=== PATIENT | female | born 1935 | race Caucasian/White ===

== ENCOUNTER 2024-07-17 02:59 | Inpatient (IN) ==
[2024-07-17] MEDS ORDERED: Midazolam 5 mg/5 ml VIAL 1 mg/ml 5 ml VIAL (5 mg) ONE (03:20)
[2024-07-17] MEDS ORDERED: fentaNYL 100 mcg/2 ml 50 MCG/ML VIAL ONE (03:20)
[2024-07-17] MEDS ORDERED: Heparin 1,000 UNIT/ML 10 ml (10,000 UNITS) CATHLAB/DIALYSIS ONE (03:20)
[2024-07-17] MEDS ORDERED: VERAPAMIL 2.5 MG/ML 2 ML VIAL ** 5 mg/2 ml ONE (03:21)
[2024-07-17] MEDS ORDERED: Lidocaine 1% MPF 5 ML VIAL ONE ×2 (03:21)
[2024-07-17] MEDS ORDERED: Heparin 2 UNITS/ML IVPREMIX 2,000 UNIT/1,000 ML BAG IV ONE ×2 (03:21→17:41)
[2024-07-17] MEDS ORDERED: nitroGLYCERIN DRIP 25,000 MCG/250 ML BTL ONE (03:21)
[2024-07-17 03:26] LABS: ABS Lymphocytes 1.2 10^3/uL (1.0-4.8); ABS Monocytes 1.3 10^3/uL (0.0-0.9); ABS Neutrophils 17.7 10^3/uL (1.5-7.6); ABS Nucleated RBC 0.08 10^3/ul; Lymphocyte % 5.9 %; Mean Corpuscular Hgb Conc 32.6 g/dL (31-36); Mean Corpuscular Volume 91.9 fL (80-97); Mean Platelet Volume 7.7 fL (7.5-11.2); Nucleated Red Blood Cells % 0.4 %/100WBC (0.0-0.8); Platelet Count 288 10^3/uL (150-450); Red Blood Count 4.68 10^6/uL (3.63-4.92); Red Cell Distribution Width 14.8 % (12-17); White Blood Count 20.2 10^3/uL (3.8-11.8)
[2024-07-17] MEDS: Heparin - STEMI 5,000 UNITS/ML 1 ml VIAL IV ONE (03:27)
[2024-07-17] MEDS ORDERED: Iohexol 350 (CONTRAST) 100 ML PAK IV ONE ×3 (03:29→04:35)
[2024-07-17] MEDS: Furosemide 40 mg/4 ml IV VIAL IV SLOW PU ONE (03:30)
[2024-07-17 03:34] LABS: Activated Partial Thrombo Time 27.7 seconds (26.0-38.0); INR 1.66 (0.85-1.14)
[2024-07-17 03:47] LABS: ALT 121 U/L (7-52); AST 369 U/L (13-39); Albumin 4.3 g/dL (3.2-5.2); Albumin/Globulin Ratio 1.3 (1-3); Alkaline Phosphatase 86 U/L (35-149); Anion Gap 6 mmol/L (2-16); Blood Urea Nitrogen 25 mg/dL (6-24); CO2 Carbon Dioxide 23 mmol/L (22-32); Calcium 9.3 mg/dL (8.6-10.3); Chloride 102 mmol/L (101-111); Creatinine, Serum 1.15 mg/dL (0.51-0.95); Globulin 3.2 g/dL (2-4); Glucose 269 mg/dL (70-100); High Sens Troponin Baseline > 24000 pg/mL (<15); LDL Cholesterol Direct 64 mg/dL; Magnesium 2.1 mg/dL (1.9-2.7); Potassium 4.4 mmol/L (3.5-5.0); Sodium 131 mmol/L (135-145); Total Bilirubin 1.2 mg/dL (0.2-1.0); Total Protein 7.5 g/dL (6.4-8.9); eGFR CKD-EPI 45.8 (>60)
[2024-07-17] MEDS ORDERED: Heparin 2 UNITS/ML IVPREMIX 1,000 UNIT/500 ML BAG IV ONE (04:11)
[2024-07-17] MEDS ORDERED: Heparin 2 UNITS/ML 1000 mls 1,000 ML IV ONE (04:13)
[2024-07-17] MEDS ORDERED: Norepinephrine 4 MG/250mL D5W 4,000 MCG/250 ML BAG IV ONE ×3 (04:33→19:37)
[2024-07-17] MEDS ORDERED: Atropine 0.1 MG/ML 10 ml SYR (1 mg) ONE ×2 (04:40→06:19)
[2024-07-17] MEDS ORDERED: Benzocaine/Butamben/Tetracain (CETACAINE - SINGLE USE) 5 gm TOPICAL ONE (05:34)
[2024-07-17] MEDS ORDERED: EPINEPHRINE IV ONE (06:05)
[2024-07-17] MEDS ORDERED: Succinylcholine 200 mg VIAL 20 mg/ml 10 ml VIAL (200 mg) ONE (06:05)
[2024-07-17] MEDS ORDERED: Ketamine HCL 50 mg/ml 10 ml VIAL (500 MG) ONE (06:05)
[2024-07-17] MEDS ORDERED: NS 0.9% IV ONE (06:05)
[2024-07-17 06:29] LABS: High Sensitivity Troponin 1 Hr > 24000 pg/mL (<15)
[2024-07-17 06:50] LABS: High Sensitivity Troponin 3 Hr > 24000 pg/mL (<15)
[2024-07-17] MEDS ORDERED: Furosemide 40 mg/4 ml IV VIAL ONE (07:33)
[2024-07-17] MEDS: Norepinephrine 4 MG/250mL D5W 4,000 MCG/250 ML BAG IV SCH (08:05)
[2024-07-17] MEDS: Propofol 10 mg/ml 100 ML BTL 1,000 MG/100 ML BTL IV SCH (08:05)
[2024-07-17] MEDS ORDERED: Sulfur Hexaflouride MICROSPHR 25 MG VIAL IV PRN (08:09)
[2024-07-17] MEDS: NS 0.9% 250 ml 250 ML IV ONE ×2 (09:20→13:09)
[2024-07-17] MEDS: Propofol 10 mg/ml 100 ML BTL 1,000 MG/100 ML BTL ONE (09:47)
[2024-07-17] MEDS: Succinylcholine 200 mg VIAL 20 mg/ml 10 ml VIAL (200 mg) ONE (09:48)
[2024-07-17] MEDS: EPINEPHrine SYR 0.1MG/ML 10 ml SYRINGE IV ONE (09:48)
[2024-07-17] MEDS: Rocuronium 50 mg VIAL 10 mg/ml 5 ml VIAL (50 mg) ONE (09:48)
[2024-07-17] MEDS: NS 0.9% 1000 ml BAG 1,000 ML IV SCH (09:49)
[2024-07-17] MEDS: Norepinephrine 4 MG/250mL D5W 4,000 MCG/250 ML BAG IV ONE (09:49)
[2024-07-17] MEDS: Chlorhexidine MOUTHWASH 0.12% 15 ML UDC TOPICAL SCH (11:58)
[2024-07-17] MEDS: Famotidine IV 10 MG/ML 2 ml VIAL (20 mg) IV SLOW PU SCH (11:58)
[2024-07-17 14:25] LABS: Hematocrit 38.6 % (35-45); Hemoglobin 12.8 g/dL (11.5-14.3); Mean Corpuscular Hemoglobin 30.2 pg (27-33); Mean Corpuscular Hgb Conc 33.1 g/dL (31-36); Mean Corpuscular Volume 91.3 fL (80-97); Mean Platelet Volume 7.9 fL (7.5-11.2); Platelet Count 245 10^3/uL (150-450); Red Blood Count 4.23 10^6/uL (3.63-4.92); Red Cell Distribution Width 14.8 % (12-17); White Blood Count 20.7 10^3/uL (3.8-11.8)
[2024-07-17 14:27] LABS: Urine Appearance Turbid; Urine Bilirubin Negative (Negative); Urine Blood 2+ (Negative); Urine Color Yellow; Urine Glucose Negative (Negative); Urine Ketones Negative (Negative); Urine Nitrite Negative (Negative); Urine Protein 1+ (>=30 mg/dL) (Negative); Urine Specific Gravity 1.042 (1.002-1.030); Urine Urobilinogen Negative (Negative); Urine pH 5.5 (5.0-8.0)
[2024-07-17 14:37] LABS: Urine Bacteria 1+ /HPF (Absent); Urine Red Blood Cell 3+(>10/hpf) /HPF (0-Trace); Urine Squamous Epithelial Cell Present /HPF (Absent); Urine White Blood Cell 3+(>20/hpf) /HPF (0-Trace)
[2024-07-17 14:54] LABS: Albumin 3.3 g/dL (3.2-5.2); Albumin/Globulin Ratio 1.4 (1-3); Calcium 7.3 mg/dL (8.6-10.3); Creatinine, Serum 1.37 mg/dL (0.51-0.95); Globulin 2.4 g/dL (2-4); Potassium 5.4 mmol/L (3.5-5.0); Total Bilirubin 1.3 mg/dL (0.2-1.0); Total Protein 5.7 g/dL (6.4-8.9); eGFR CKD-EPI 37.1 (>60)
[2024-07-17] MEDS ORDERED: Dextrose 50% Syringe 50 ml 25 GM/50 ML SYRINGE IV PUSH PRN (15:02)
[2024-07-17] MEDS: DOBUTamine 2000 MCG/ML IVPREMX 500 MG/250 ML BAG IV SCH (15:57)
[2024-07-17] MEDS ORDERED: Heparin 5000 UNITS/ML 1 mL VIAL IV PRN (18:00)
[2024-07-17] MEDS: fentaNYL INFUSION 50 mcg/mL VL 2,500 MCG/50 ML VIAL IV SCH (20:04)
[2024-07-17] MEDS: Heparin DRIP 25,000 UNITS BAG 25,000 UNITS/250 ML BAG IV SCH (20:07)
[2024-07-17] MEDS: fentaNYL 100 mcg/2 ml 50 MCG/ML VIAL IV ONE (20:43)
[2024-07-17] MEDS: fentaNYL 100 mcg/2 ml 50 MCG/ML VIAL ONE (22:53)
[2024-07-17] MEDS: Norepinephrine *QUAD STRENGTH* 16 mg/250 mL NS PREMIX (ICU ONLY) IV SCH (23:05)
[2024-07-18 07:21] VITALS: BP 95/58
== END 2024-07-18 04:15 | disposition short-term general hospital (02) | DRG 270 ==
LOC: ED 02:59 → CHICATH 05:53 → ICU 05:53 → OBSVTOIN 08:51
PROVIDERS: ATTEND Student in an Organized Health Care Education/Training Program

== ENCOUNTER 2024-08-11 06:46 | Inpatient (IN) ==
[2024-08-11 07:56] LABS: ABS Basophils 0.1 10^3/uL (0.0-0.1); ABS Lymphocytes 0.6 10^3/uL (1.0-4.8); ABS Monocytes 0.8 10^3/uL (0.0-0.9); ABS Neutrophils 10.6 10^3/uL (1.5-7.6); Hematocrit 26.7 % (35-45); Hemoglobin 8.9 g/dL (11.5-14.3); Lymphocyte % 4.8 %; Mean Corpuscular Hemoglobin 30.8 pg (27-33); Mean Corpuscular Hgb Conc 33.4 g/dL (31-36); Mean Corpuscular Volume 92.4 fL (80-97); Mean Platelet Volume 7.8 fL (7.5-11.2); Platelet Count 219 10^3/uL (150-450); Red Blood Count 2.89 10^6/uL (3.63-4.92); Red Cell Distribution Width 16.7 % (12-17)
[2024-08-11 08:10] LABS: Albumin 3.2 g/dL (3.5-5.7); Calcium 8.9 mg/dL (8.6-10.3); Creatinine, Serum 1.35 mg/dL (0.51-0.95); Globulin 3.3 g/dL (2-4); Magnesium 1.3 mg/dL (1.9-2.7); Potassium 4.7 mmol/L (3.5-5.0); Total Bilirubin 0.9 mg/dL (0.2-1.0); Total Protein 6.5 g/dL (6.4-8.9); eGFR CKD-EPI 37.8 (>60)
[2024-08-11] MEDS: Magnesium Sulfate 2 gm BAG 2 GM/50 ML BAG IVPB ONE (08:30)
[2024-08-11] MEDS: Lactated Ringers 1000 ml BAG 1,000 ML IV ONE (08:30)
[2024-08-11 08:31] LABS: TSH Ultra Thyroid Stim Horm 4.36 mcIU/mL (0.34-5.60)
[2024-08-11 08:59] LABS: High Sensitivity Troponin 1 Hr 192 pg/mL (<15)
[2024-08-11] MEDS: Furosemide 40 mg/4 ml IV VIAL IV SLOW PU ONE (10:50)
[2024-08-11] MEDS ORDERED: Al Hydrox/Mg Hydrox/Simet LIQ 30 ML UDC PO PRN (11:24)
[2024-08-11 12:38] LABS: Urine Appearance Clear; Urine Bilirubin Negative (Negative); Urine Blood Negative (Negative); Urine Color Colorless; Urine Glucose 3+ (>=300 mg/dL) (Negative); Urine Ketones Negative (Negative); Urine Nitrite Negative (Negative); Urine Protein Negative (Negative); Urine Specific Gravity 1.005 (1.002-1.030); Urine Urobilinogen Negative (Negative); Urine pH 5.5 (5.0-8.0)
[2024-08-11 12:40] LABS: Urine Bacteria 3+ /HPF (Absent); Urine Red Blood Cell 2+(6-10/hpf) /HPF (0-Trace); Urine Squamous Epithelial Cell Present /HPF (Absent); Urine White Blood Cell 3+(>20/hpf) /HPF (0-Trace)
[2024-08-11] MEDS ORDERED: Sulfur Hexaflouride MICROSPHR 25 MG VIAL IV PRN (17:05)
[2024-08-11] MEDS: Furosemide 20 mg/2 ml IV VIAL IV ONE (17:06)
[2024-08-11] MEDS: Furosemide 40 mg/4 ml IV VIAL IV ONE (17:13)
[2024-08-11] MEDS ORDERED: Senna TAB 8.6 mg TAB PO PRN (17:20)
[2024-08-11] MEDS: Metoprolol Tartrate 5 mg VIAL 5 ml VIAL (1 mg/ml) IV ONE (17:38)
[2024-08-11] MEDS: Magnesium Sulf 4 GM/100 ML IV 4,000 MG/100 ML BAG IVPB ONE (17:40)
[2024-08-11 20:48] LABS: Ferritin 210.4 ng/mL (11-307)
[2024-08-11] MEDS: Levalbuterol 0.63MG/3ML NEB UNIT OF USE INH ONE (21:15)
[2024-08-11] MEDS: BRINZOLAMIDE 1% BOTH EYES SCH (21:46)
[2024-08-12 06:06] LABS: ABS Eosinophils 0.1 10^3/uL (0.0-0.5); ABS Lymphocytes 1.5 10^3/uL (1.0-4.8); ABS Monocytes 1.1 10^3/uL (0.0-0.9); ABS Neutrophils 10.2 10^3/uL (1.5-7.6); Eosinophil % 0.4 %; Hematocrit 26.3 % (35-45); Hemoglobin 8.7 g/dL (11.5-14.3); Lymphocyte % 11.6 %; Mean Corpuscular Hemoglobin 30.8 pg (27-33); Mean Corpuscular Hgb Conc 33.2 g/dL (31-36); Mean Corpuscular Volume 92.8 fL (80-97); Mean Platelet Volume 8.1 fL (7.5-11.2); Platelet Count 219 10^3/uL (150-450); Red Blood Count 2.83 10^6/uL (3.63-4.92); White Blood Count 12.9 10^3/uL (3.8-11.8)
[2024-08-12 06:40] LABS: Calcium 8.5 mg/dL (8.6-10.3); Creatinine, Serum 1.32 mg/dL (0.51-0.95); Magnesium 2.9 mg/dL (1.9-2.7); Potassium 4.2 mmol/L (3.5-5.0); eGFR CKD-EPI 38.8 (>60)
[2024-08-12] MEDS: Furosemide 40 mg/4 ml IV VIAL IV ONE (08:11)
[2024-08-12] MEDS: Levalbuterol 0.63MG/3ML NEB UNIT OF USE INH ONE (10:08)
[2024-08-12] MEDS: Sulfur Hexaflouride MICROSPHR 25 MG VIAL IV PRN (10:42)
[2024-08-12] MEDS: PTO: Travoprost Z 0.004% OPHTH (NF) 2.5 ML BTL BOTH EYES SCH (20:36)
[2024-08-13 06:39] LABS: ABS Neutrophils 9.3 10^3/uL (1.5-7.6); ABS Nucleated RBC 0.02 10^3/ul; Eosinophil % 0.3 %; Hematocrit 24.3 % (35-45); Hemoglobin 8.1 g/dL (11.5-14.3); Lymphocyte % 9.2 %; Mean Corpuscular Hemoglobin 30.7 pg (27-33); Mean Corpuscular Hgb Conc 33.3 g/dL (31-36); Mean Corpuscular Volume 92.3 fL (80-97); Mean Platelet Volume 7.6 fL (7.5-11.2); Nucleated Red Blood Cells % 0.1 %/100WBC (0.0-0.8); Platelet Count 214 10^3/uL (150-450); Red Blood Count 2.63 10^6/uL (3.63-4.92); Red Cell Distribution Width 16.8 % (12-17); White Blood Count 11.4 10^3/uL (3.8-11.8)
[2024-08-13 07:16] LABS: Calcium 8.3 mg/dL (8.6-10.3); Creatinine, Serum 1.32 mg/dL (0.51-0.95); Magnesium 2.2 mg/dL (1.9-2.7); Potassium 4.2 mmol/L (3.5-5.0); eGFR CKD-EPI 38.8 (>60)
[2024-08-13] MEDS: Furosemide 40 mg/4 ml IV VIAL IV SLOW PU SCH (09:26)
[2024-08-13] MEDS: cefTRIAXone 1 gm/50 mL D5W 1 GM/50 ML BAG IV SCH (09:26)
[2024-08-13] MEDS: Metoprolol Tartrate 5 mg VIAL 5 ml VIAL (1 mg/ml) IV ONE (13:15)
[2024-08-13] MEDS ORDERED: Furosemide 40 mg/4 ml IV VIAL IV SLOW PU SCH (17:00)
[2024-08-13] MEDS: Pantoprazole VIAL 40 MG VIAL IV SCH (20:19)
[2024-08-13] MEDS: PTO:Brimonidine/Timolol 0.2%/0.5% OPTH(NF) SOL 5 ML BOTH EYES SCH (20:25)
[2024-08-13] MEDS: NETARSUDIL 0.02% LEFT EYE SCH (20:27)
[2024-08-14 08:32] LABS: ABS Basophils 0.1 10^3/uL (0.0-0.1); ABS Lymphocytes 1.3 10^3/uL (1.0-4.8); ABS Monocytes 0.6 10^3/uL (0.0-0.9); ABS Neutrophils 7.8 10^3/uL (1.5-7.6); ABS Nucleated RBC 0.02 10^3/ul; Eosinophil % 0.5 %; Hematocrit 27.3 % (35-45); Hemoglobin 8.9 g/dL (11.5-14.3); Lymphocyte % 12.8 %; Mean Corpuscular Hemoglobin 30.4 pg (27-33); Mean Corpuscular Hgb Conc 32.5 g/dL (31-36); Mean Corpuscular Volume 93.7 fL (80-97); Mean Platelet Volume 8.1 fL (7.5-11.2); Nucleated Red Blood Cells % 0.2 %/100WBC (0.0-0.8); Platelet Count 249 10^3/uL (150-450); Red Blood Count 2.91 10^6/uL (3.63-4.92); Red Cell Distribution Width 17.5 % (12-17); White Blood Count 9.8 10^3/uL (3.8-11.8)
[2024-08-14 09:15] LABS: Calcium 7.9 mg/dL (8.6-10.3); Creatinine, Serum 1.04 mg/dL (0.51-0.95); Magnesium 1.8 mg/dL (1.9-2.7); Potassium 3.9 mmol/L (3.5-5.0); eGFR CKD-EPI 51.7 (>60)
[2024-08-14] MEDS: Magnesium Sulfate 2 gm BAG 2 GM/50 ML BAG IVPB ONE (13:42)
[2024-08-15 07:15] LABS: ABS Monocytes 0.7 10^3/uL (0.0-0.9); ABS Neutrophils 6.1 10^3/uL (1.5-7.6); ABS Nucleated RBC 0.01 10^3/ul; Eosinophil % 0.3 %; Hematocrit 24.8 % (35-45); Hemoglobin 8.4 g/dL (11.5-14.3); Mean Corpuscular Hemoglobin 31.1 pg (27-33); Mean Corpuscular Hgb Conc 33.8 g/dL (31-36); Mean Corpuscular Volume 92.3 fL (80-97); Mean Platelet Volume 7.6 fL (7.5-11.2); Nucleated Red Blood Cells % 0.1 %/100WBC (0.0-0.8); Platelet Count 232 10^3/uL (150-450); Red Blood Count 2.69 10^6/uL (3.63-4.92); White Blood Count 7.9 10^3/uL (3.8-11.8)
[2024-08-15 07:40] LABS: Calcium 7.7 mg/dL (8.6-10.3); Creatinine, Serum 0.95 mg/dL (0.51-0.95); Magnesium 1.9 mg/dL (1.9-2.7); Potassium 3.6 mmol/L (3.5-5.0); eGFR CKD-EPI 57.6 (>60)
[2024-08-16 06:06] LABS: ABS Lymphocytes 1.2 10^3/uL (1.0-4.8); ABS Monocytes 0.7 10^3/uL (0.0-0.9); ABS Neutrophils 5.8 10^3/uL (1.5-7.6); Eosinophil % 0.3 %; Hematocrit 26.4 % (35-45); Hemoglobin 8.8 g/dL (11.5-14.3); Lymphocyte % 15.2 %; Mean Corpuscular Hemoglobin 30.2 pg (27-33); Mean Corpuscular Hgb Conc 33.1 g/dL (31-36); Mean Corpuscular Volume 91.4 fL (80-97); Mean Platelet Volume 7.5 fL (7.5-11.2); Nucleated Red Blood Cells % 0.1 %/100WBC (0.0-0.8); Platelet Count 263 10^3/uL (150-450); Red Blood Count 2.89 10^6/uL (3.63-4.92); Red Cell Distribution Width 16.9 % (12-17); White Blood Count 7.8 10^3/uL (3.8-11.8)
[2024-08-16 06:48] LABS: Calcium 8.2 mg/dL (8.6-10.3); Creatinine, Serum 1.09 mg/dL (0.51-0.95); Magnesium 1.8 mg/dL (1.9-2.7); Potassium 3.3 mmol/L (3.5-5.0); eGFR CKD-EPI 48.9 (>60)
[2024-08-16] MEDS: Potassium Chlor 20 meq TAB.ER PO ONE (08:51)
[2024-08-16] MEDS: KCL 10 MEQ/50 ML IVPREMIX 10 MEQ/50 ML BAG IV SCH (08:59)
[2024-08-16] MEDS: Magnesium Sulfate 2 gm BAG 2 GM/50 ML BAG IVPB ONE (09:01)
[2024-08-17 06:17] LABS: ABS Lymphocytes 0.8 10^3/uL (1.0-4.8); ABS Monocytes 0.8 10^3/uL (0.0-0.9); ABS Neutrophils 7.2 10^3/uL (1.5-7.6); Eosinophil % 0.2 %; Hematocrit 27.3 % (35-45); Hemoglobin 8.9 g/dL (11.5-14.3); Lymphocyte % 9.3 %; Mean Corpuscular Hemoglobin 30.1 pg (27-33); Mean Corpuscular Hgb Conc 32.7 g/dL (31-36); Mean Platelet Volume 7.4 fL (7.5-11.2); Platelet Count 308 10^3/uL (150-450); Red Blood Count 2.97 10^6/uL (3.63-4.92); Red Cell Distribution Width 17.2 % (12-17); White Blood Count 8.8 10^3/uL (3.8-11.8)
[2024-08-17 06:34] LABS: Calcium 8.7 mg/dL (8.6-10.3); Creatinine, Serum 0.97 mg/dL (0.51-0.95); Magnesium 2.2 mg/dL (1.9-2.7); Potassium 3.9 mmol/L (3.5-5.0); eGFR CKD-EPI 56.2 (>60)
[2024-08-17] MEDS: Levalbuterol 0.63MG/3ML NEB UNIT OF USE INH PRN (08:20)
[2024-08-17] MEDS: Furosemide 20 mg/2 ml IV VIAL IV ONE (14:45)
[2024-08-17] MEDS: Potassium Chlor 10 meq TAB PO ONE (16:52)
[2024-08-18 06:12] LABS: ABS Lymphocytes 1.2 10^3/uL (1.0-4.8); ABS Neutrophils 7.9 10^3/uL (1.5-7.6); Eosinophil % 0.1 %; Hematocrit 26.2 % (35-45); Hemoglobin 8.7 g/dL (11.5-14.3); Lymphocyte % 12.1 %; Mean Corpuscular Hemoglobin 30.3 pg (27-33); Mean Corpuscular Volume 91.8 fL (80-97); Mean Platelet Volume 7.1 fL (7.5-11.2); Platelet Count 271 10^3/uL (150-450); Red Blood Count 2.86 10^6/uL (3.63-4.92); Red Cell Distribution Width 17.3 % (12-17); White Blood Count 10.2 10^3/uL (3.8-11.8)
[2024-08-18 06:56] LABS: Calcium 8.4 mg/dL (8.6-10.3); Creatinine, Serum 0.95 mg/dL (0.51-0.95); Magnesium 1.8 mg/dL (1.9-2.7); Potassium 4.1 mmol/L (3.5-5.0); eGFR CKD-EPI 57.6 (>60)
[2024-08-18] MEDS: Magnesium Sulfate 2 gm BAG 2 GM/50 ML BAG IVPB ONE (08:20)
[2024-08-19 07:14] LABS: ABS Basophils 0.1 10^3/uL (0.0-0.1); ABS Neutrophils 7.5 10^3/uL (1.5-7.6); ABS Nucleated RBC 0.01 10^3/ul; Eosinophil % 0.1 %; Hematocrit 27.3 % (35-45); Hemoglobin 8.8 g/dL (11.5-14.3); Lymphocyte % 10.8 %; Mean Corpuscular Hemoglobin 29.9 pg (27-33); Mean Corpuscular Hgb Conc 32.2 g/dL (31-36); Mean Corpuscular Volume 92.8 fL (80-97); Mean Platelet Volume 7.4 fL (7.5-11.2); Nucleated Red Blood Cells % 0.1 %/100WBC (0.0-0.8); Platelet Count 293 10^3/uL (150-450); Red Blood Count 2.95 10^6/uL (3.63-4.92); Red Cell Distribution Width 17.4 % (12-17); White Blood Count 9.6 10^3/uL (3.8-11.8)
[2024-08-19] MEDS: Magnesium Sulfate 2 gm BAG 2 GM/50 ML BAG IVPB ONE (07:20)
[2024-08-19 07:27] LABS: Calcium 8.5 mg/dL (8.6-10.3); Creatinine, Serum 1.07 mg/dL (0.51-0.95); Potassium 4.1 mmol/L (3.5-5.0)
[2024-08-20 05:46] LABS: ABS Basophils 0.1 10^3/uL (0.0-0.1); ABS Lymphocytes 1.1 10^3/uL (1.0-4.8); ABS Neutrophils 6.8 10^3/uL (1.5-7.6); Eosinophil % 0.2 %; Hematocrit 26.3 % (35-45); Hemoglobin 8.9 g/dL (11.5-14.3); Lymphocyte % 11.9 %; Mean Corpuscular Hemoglobin 30.8 pg (27-33); Mean Corpuscular Hgb Conc 33.6 g/dL (31-36); Mean Corpuscular Volume 91.7 fL (80-97); Mean Platelet Volume 7.5 fL (7.5-11.2); Platelet Count 284 10^3/uL (150-450); Red Blood Count 2.87 10^6/uL (3.63-4.92); Red Cell Distribution Width 17.1 % (12-17); White Blood Count 8.9 10^3/uL (3.8-11.8)
[2024-08-20 06:19] LABS: Calcium 9.1 mg/dL (8.6-10.3); Creatinine, Serum 1.09 mg/dL (0.51-0.95); Magnesium 2.2 mg/dL (1.9-2.7); Potassium 3.8 mmol/L (3.5-5.0); eGFR CKD-EPI 48.9 (>60)
[2024-08-20 09:56] LABS: Rapid COVID-19 Molecular Undetected (Undetected)
[2024-08-20] MEDS ORDERED: Sulfur Hexaflouride MICROSPHR 25 MG VIAL IV PRN (10:22)
[2024-08-20 10:28] VITALS: BP 105/57
[2024-08-20] MEDS: Potassium Chlor 20 meq TAB.ER PO ONE (11:40)
== END 2024-08-20 14:35 | DRG 291 ==
LOC: ED 06:46 → EDHOLD 06:46 → SUATTDRO 11:24 → MEDTELE 13:48 → SUATTDRO 08-13 12:00
PROVIDERS: ADMIT Internal Medicine; ATTEND Student in an Organized Health Care Education/Training Program

== ENCOUNTER 2024-08-22 09:28 | Inpatient (IN) ==
[2024-08-22 10:07] LABS: ABS Lymphocytes 0.4 10^3/uL (1.0-4.8); ABS Monocytes 0.7 10^3/uL (0.0-0.9); ABS Neutrophils 7.4 10^3/uL (1.5-7.6); Hematocrit 23.8 % (35-45); Hemoglobin 7.8 g/dL (11.5-14.3); Lymphocyte % 4.4 %; Mean Corpuscular Hemoglobin 30.1 pg (27-33); Mean Corpuscular Hgb Conc 32.9 g/dL (31-36); Mean Corpuscular Volume 91.6 fL (80-97); Mean Platelet Volume 7.5 fL (7.5-11.2); Platelet Count 316 10^3/uL (150-450); Red Cell Distribution Width 17.1 % (12-17); White Blood Count 8.5 10^3/uL (3.8-11.8)
[2024-08-22 10:15] LABS: INR 1.74 (0.85-1.14)
[2024-08-22 11:05] LABS: Albumin 2.8 g/dL (3.5-5.7); Albumin/Globulin Ratio 0.8 (1-3); Calcium 8.6 mg/dL (8.6-10.3); Creatinine, Serum 1.74 mg/dL (0.51-0.95); Globulin 3.3 g/dL (2-4); Potassium 4.6 mmol/L (3.5-5.0); Total Protein 6.1 g/dL (6.4-8.9); eGFR CKD-EPI 27.9 (>60)
[2024-08-22 12:07] LABS: High Sensitivity Troponin 1 Hr 79 pg/mL (<15)
[2024-08-22 17:02] LABS: High Sensitivity Troponin 3 Hr 66 pg/mL (<15)
[2024-08-22 18:27] LABS: ABS Monocytes 0.9 10^3/uL (0.0-0.9); ABS Neutrophils 6.7 10^3/uL (1.5-7.6); Eosinophil % 0.1 %; Hematocrit 25.8 % (35-45); Hemoglobin 8.8 g/dL (11.5-14.3); Lymphocyte % 11.2 %; Mean Corpuscular Hemoglobin 30.8 pg (27-33); Mean Corpuscular Hgb Conc 34.2 g/dL (31-36); Mean Corpuscular Volume 90.2 fL (80-97); Mean Platelet Volume 7.4 fL (7.5-11.2); Platelet Count 262 10^3/uL (150-450); Red Blood Count 2.86 10^6/uL (3.63-4.92); Red Cell Distribution Width 15.9 % (12-17); White Blood Count 8.6 10^3/uL (3.8-11.8)
[2024-08-22 19:11] LABS: Ferritin 72.8 ng/mL (11-307)
[2024-08-22] MEDS: ESTRADIOL VAGINAL SCH (20:34)
[2024-08-22] MEDS: Brimonidine/Timolol 0.2%/0.5% OPTH(NF) SOL 5 ML BOTH EYES SCH (21:29)
[2024-08-22] MEDS: Senna TAB 8.6 mg TAB PO SCH (21:29)
[2024-08-22] MEDS: Pantoprazole VIAL 40 MG VIAL IV SCH (21:30)
[2024-08-22] MEDS: NETARSUDIL 0.02% LEFT EYE SCH (21:46)
[2024-08-22] MEDS: BRINZOLAMIDE 1% BOTH EYES SCH (21:46)
[2024-08-23 06:02] LABS: ABS Basophils 0.1 10^3/uL (0.0-0.1); ABS Lymphocytes 0.9 10^3/uL (1.0-4.8); ABS Neutrophils 6.7 10^3/uL (1.5-7.6); Eosinophil % 0.1 %; Hematocrit 26.7 % (35-45); Lymphocyte % 10.6 %; Mean Corpuscular Hemoglobin 30.2 pg (27-33); Mean Corpuscular Hgb Conc 33.6 g/dL (31-36); Mean Platelet Volume 7.4 fL (7.5-11.2); Platelet Count 296 10^3/uL (150-450); Red Blood Count 2.96 10^6/uL (3.63-4.92); Red Cell Distribution Width 16.4 % (12-17); White Blood Count 8.7 10^3/uL (3.8-11.8)
[2024-08-23 06:27] LABS: Calcium 8.4 mg/dL (8.6-10.3); Creatinine, Serum 1.33 mg/dL (0.51-0.95); Magnesium 1.9 mg/dL (1.9-2.7); Potassium 4.2 mmol/L (3.5-5.0); eGFR CKD-EPI 38.5 (>60)
[2024-08-23] MEDS: Magnesium Sulfate 2 gm BAG 2 GM/50 ML BAG IVPB ONE (09:48)
[2024-08-23] MEDS: Multivitamins/Minerals TAB PO SCH (09:49)
[2024-08-23] MEDS: Polyethylene Glycol 3350 17 GM PACKET PO SCH (09:55)
[2024-08-23] MEDS ORDERED: Sulfur Hexaflouride MICROSPHR 25 MG VIAL IV PRN (12:26)
[2024-08-23 15:28] LABS: Hematocrit 26.9 % (35-45); Hemoglobin 9.1 g/dL (11.5-14.3)
[2024-08-23] MEDS ORDERED: Latanoprost 0.005% 2.5 ml BTL BOTH EYES SCH (21:00)
[2024-08-23] MEDS: PTO:Travoprost 0.004% (NF) OPHTH.SOLN BOTH EYES SCH (21:01)
[2024-08-24 06:43] LABS: ABS Basophils 0.1 10^3/uL (0.0-0.1); ABS Lymphocytes 0.7 10^3/uL (1.0-4.8); ABS Monocytes 0.9 10^3/uL (0.0-0.9); ABS Neutrophils 9.9 10^3/uL (1.5-7.6); ABS Nucleated RBC 0.01 10^3/ul; Eosinophil % 0.2 %; Hematocrit 31.9 % (35-45); Hemoglobin 10.4 g/dL (11.5-14.3); Lymphocyte % 5.9 %; Mean Corpuscular Hemoglobin 29.7 pg (27-33); Mean Corpuscular Hgb Conc 32.5 g/dL (31-36); Mean Corpuscular Volume 91.2 fL (80-97); Mean Platelet Volume 7.5 fL (7.5-11.2); Nucleated Red Blood Cells % 0.1 %/100WBC (0.0-0.8); Platelet Count 369 10^3/uL (150-450); Red Cell Distribution Width 16.6 % (12-17); White Blood Count 11.6 10^3/uL (3.8-11.8)
[2024-08-24 08:42] LABS: Calcium 9.2 mg/dL (8.6-10.3); Creatinine, Serum 0.92 mg/dL (0.51-0.95); Potassium 4.2 mmol/L (3.5-5.0); eGFR CKD-EPI 59.9 (>60)
[2024-08-24] MEDS: Bumetanide IV 0.25 MG/ML 4 ml VIAL (1 mg) IV SLOW PU ONE (09:36)
[2024-08-24 11:05] LABS: Budding Yeast Present /HPF (Absent); Hyphae Yeast Present /HPF (Absent); Urine Appearance Extra Turbid; Urine Bacteria Absent /HPF (Absent); Urine Bilirubin Negative (Negative); Urine Blood 1+ (Negative); Urine Color Yellow; Urine Glucose 4+ (>=1000 mg/dL) (Negative); Urine Ketones Negative (Negative); Urine Nitrite Negative (Negative); Urine Protein 1+ (>=30 mg/dL) (Negative); Urine Red Blood Cell 3+(>10/hpf) /HPF (0-Trace); Urine Renal Epithelial Cells Present /HPF (Absent); Urine Squamous Epithelial Cell Present /HPF (Absent); Urine Transitional Epithelial Present /HPF (Absent); Urine Urobilinogen Negative (Negative); Urine White Blood Cell 3+(>20/hpf) /HPF (0-Trace); Urine pH 5.5 (5.0-8.0)
[2024-08-24 15:33] LABS: Calcium 9.3 mg/dL (8.6-10.3); Creatinine, Serum 0.99 mg/dL (0.51-0.95); Potassium 4.1 mmol/L (3.5-5.0); eGFR CKD-EPI 54.8 (>60)
[2024-08-25 08:28] VITALS: BP 132/70
== END 2024-08-25 10:05 | disposition short-term general hospital (02) | DRG 308 ==
LOC: EDHOLD 09:28 → ED 09:28 → MEDTELE 15:59
PROVIDERS: ADMIT Hospitalist; ATTEND Hospitalist